=== PATIENT | female | born 1990 | race Caucasian/White ===

== ENCOUNTER 2016-07-03 18:16 | Emergency (ER) ==
[2016-07-03 18:47] VITALS: BP 161/109
--- NOTE | 2016-07-03 20:52 | PROVIDER DOCUMENTATION ---
HPI-Musculoskeletal Pain/Inj - GENERAL Chief Complaint: Extremity Pain Stated Complaint: EXREMITY INJURY Time Seen by Provider: 07/03/16 18:48 Source: patient - HX OF PRESENT ILLNESS-MUSKULOSKELTAL Nature of Presenting Problem: This pt presents today c complaints of R knee, ankle and hip pain from a fall down the stairs 3 weeks ago. She states that it just "never got to feeling better" and then 3 days ago she stepped in a hole and now her ankle is in more pain. She is ambulating. no other issues or complaints. Quality of Pain: reports: aching Severity in ED: mild Onset/Duration: other (see hpi) Timing: still present Modifying Factors: improves with: movement, palpation Any recent injury?: Yes Similar Symptoms Previously?: No Recently seen or treated by another doctor?: No Review of Systems - Adult - REVIEW OF SYSTEMS - ADULT Constitutional: reports: no symptoms reported. denies: chills, fatique Eyes: reports: no symptoms reported. denies: discharge, dry eyes Ears, Nose, Mouth & Throat: reports: no symptoms reported. denies: ear discharge, ear pain Cardiovascular: reports: no symptoms reported. denies: chest pain, edema Respiratory: reports: no symptoms reported. denies: chronic cough, cough Gastrointestinal: reports: no symptoms reported. denies: abdominal pain, hematemesis Genitourinary: reports: no symptoms reported. denies: dysuria, discharge Musculoskeletal: reports: joint pain, muscle aches. denies: bone pain, back pain Integumentary: reports: no symptoms reported. denies: hives, hair loss Neurological: reports: no symptoms reported. denies: ataxia, dizziness/vertigo Psychiatric: reports: no symptoms reported. denies: anxiety, anti-depressant use Endocrine: reports: no symptoms reported Hematologic/Lymphatic: reports: no symptoms reported Allergic/Immunologic: reports: no symptoms reported All Other Systems: Reviewed and Negative Past History - Adult - PAST MEDICAL HISTORY-ADULT Review of Records: reports: Old Records Reviewed, Nursing Assessment Review, Medications Reviewed, Social history reviewed & non-contributory. Major Childhood Illnesses: reports: denies history Cardiovascular: reports: denies history Respiratory: reports: denies history Gastrointestinal: reports: denies history Obstetrical/Gynecological: reports: denies history Genitourinary: reports: denies history Musculoskeletal: reports: denies history Neurological: reports: denies history Endocrine/Immune: reports: denies history Other Conditions: reports: denies history Physical Exam-Injury Related - Physical Exam-Injury Related Initial Vital Signs Reviewed: Yes General Appearance: appears well, alert, no apparent distress Eyes: PERRL/EOMI, pink conjunctivae Head, Ears, Nose, Mouth & Throat: normocephalic/atraumatic, moist mucous membranes, normal ENT inspection Neck: non-tender, full range of motion, supple, normal inspection Respiratory: chest non-tender, lungs clear Cardiovascular: normal peripheral pulses, regular rate, rhythm, no edema, no gallop, no JVD, no murmur Peripheral Pulses: dorsalis-pedis (R): 2+, dorsalis-pedis (L): 2+ Abdominal Exam: normal bowel sounds, non tender, soft Back Exam: normal inspection, no CVA tenderness, no vertebral tenderness Extremity: normal range of motion, tenderness. negative: deformity, erythema, pulse deficit, pedal edema, swelling Integumentary: normal color, warm/dry, blanching Neurologic: grossly normal, no motor/sensory deficits Psych/Mental Status: normal mood/affect, normal thought content, normal thought process, oriented x 3 Progress - PLAN OF CARE/RESULTS Progress/Plan/Lab Results: Orders Category Date Time Status Jovan Wrap Application DIRECTED Care 07/03/16 20:46 Active Crutches DIRECTED Care 07/03/16 20:46 Active ED: Urine Bedside ORDERED Care 07/03/16 18:51 Active ANKLE COMPLETE RIGHT [RAD] Stat Exams 07/03/16 18:49 Taken KNEE 3 VIEWS RIGHT [RAD] Stat Exams 07/03/16 18:49 Taken XRAY PELVIS W/HIP 2-3VW RT [RAD] Stat Exams 07/03/16 18:49 Taken Vital Signs Temp Pulse Resp BP Pulse Ox 07/03/16 18:44 98.5 F 64 18 161/109 100 meloxicam [From Mobic] Allergy (Verified 07/03/16 18:48) RASH No Home Medications 07/03/16 - XRAY 1 XRAY: Right XRAY Study: Pelvis, Hip, Knee, Ankle XRAY Interpretation: nad Departure - Departure Time of Disposition Order: 20:57 DIAGNOSIS: Ankle sprain Qualifiers: Encounter type: initial encounter Involved ligament of ankle: unspecified ligament Laterality: right Qualified Code(s): S93.401A - Sprain of unspecified ligament of right ankle, initial encounter Knee injury Qualifiers: Encounter type: initial encounter Laterality: right Qualified Code(s): S89.91XA - Unspecified injury of right lower leg, initial encounter Disposition: HOME 01 Certified Medical Emergency: Urgent Condition: Good Additional Instructions: Take medication as prescribed. Rest, ice and elevate. Follow up with an orthopedist as needed. ED Follow Up Instructions: You have been treated by a care provider in the Emergency Department. These instructions are being provided to you so you can have an understanding of how to care for yourself upon discharge. Upon discharge from the Emergency Department, you are responsible for making arrangements for follow-up care by a physician of your choice. Take all prescribed medications as directed. Return to the Emergency Department immediately for any new or worsening symptoms. You may call the Physician Referral phone number at [phone] to obtain a list of Physicians who are taking new patients. Prescriptions: Cyclobenzaprine [Flexeril] 10 mg PO TID #20 tablet Acetaminophen/Diphenhydramine [Percogesic 325-12.5 mg Tablet] 1 each PO Q6-8H PRN PRN #30 tablet PRN Reason: Pain Referrals: None,PCP [Primary Care Provider] - Araseli Sher MD [STAFF PHYSICIAN] - Attestation - Physician/ CALI Attestation Patient care was provided by Advanced Practice Provider:: Yes Advanced Practice Provider:: Vinh Smith Advanced Practice Provider documentation review:: The Mid-level provider documentation, treatment plan and medical decision making was reviewed by the physician who agrees with all treatment and medical decision making by the MLP.
--- NOTE | 2016-07-04 09:59 | Diag Imaging Result Document ---
PROCEDURE NAME: KNEE 3 VIEWS RIGHT - 07/03/2016 RIGHT KNEE, THREE VIEWS: INDICATION: Fall down stairs. FINDINGS: There is a small suprapatellar effusion. No fracture is identified. The joint spaces are well maintained. IMPRESSION: Small suprapatellar effusion.
--- NOTE | 2016-07-04 10:00 | Diag Imaging Result Document ---
PROCEDURE NAME: XRAY PELVIS W/HIP 2-3VW RT - 07/03/2016 PELVIS WITH RIGHT HIP, TWO VIEW: INDICATION: Fall down stairs. FINDINGS: No fracture is identified. No dislocation. IMPRESSION: No acute abnormalities.
--- NOTE | 2016-07-04 10:09 | Diag Imaging Result Document ---
PROCEDURE NAME: ANKLE COMPLETE RIGHT - 07/03/2016 RIGHT ANKLE, THREE VIEWS: INDICATION: Fell down stairs. FINDINGS: No fracture or dislocation is appreciated. The ankle mortise and talar dome appear intact. IMPRESSION: No acute abnormalities.
== END 2016-07-03 21:37 | disposition home or self-care (01) ==
LOC: P.ED 18:16
DX: S93.401A Sprain of unspecified ligament of right ankle, initial encounter (principal); S89.91XA Unspecified injury of right lower leg, initial encounter; M25.561 Pain in right knee; M25.571 Pain in right ankle and joints of right foot; M25.551 Pain in right hip; M79.1 Myalgia; W10.9XXA Fall (on) (from) unspecified stairs and steps, initial encounter; X58.XXXA Exposure to other specified factors, initial encounter
CPT/HCPCS: 99283